=== PATIENT | female | born 1975 | race Hispanic/Latino ===

== ENCOUNTER 2019-01-03 21:49 | Emergency (ER) | payer SELFPAY ==
[~2019-01-03] VITALS: Ht 160 cm; Wt 117.5 kg
[2019-01-03] MEDS ORDERED: ACETAMINOPHEN 325 MG TAB PO ONE (22:15)
[2019-01-03 22:38] LABS: INFLUENZAE A&B ANTIGEN (RAPID) NEGATIVE (NEGATIVE); STREPTOCOCCUS GRP A ANTIGEN NEGATIVE (NEGATIVE)
--- NOTE | 2019-01-03 22:58 | Diagnostic Imaging Report ---
EXAMINATION: CHEST 2 VIEWS INDICATION: Weakness ^FEVER, COUGH ^[id number] ^2230 ^Y COMPARISON: None FINDINGS: PA and lateral views TUBES and LINES: None. LUNGS: Lungs are well inflated. There is no evidence of pneumonia or pulmonary edema. PLEURA: No pleural effusion or pneumothorax. HEART AND MEDIASTINUM: The cardiomediastinal silhouette is unremarkable.. BONES AND SOFT TISSUES: No focal osseous lesions. Soft tissues are unremarkable. UPPER ABDOMEN: Cholecystectomy clips are present. No free air under the diaphragm. IMPRESSION: No acute thoracic abnormality. Signed by: Dr. Antony Ortiz MD on 01/03/2019 10:54 PM
[2019-01-03 23:48] LABS: CLARITY,URINE CLEAR (CLEAR); COLOR,URINE YELLOW (YELLOW); LEUKOCYTE ESTERASE ,URINE NEGATIVE (NEGATIVE)
[2019-01-03 23:49] LABS: BILIRUBIN,URINE NEGATIVE (NEGATIVE); KETONES,URINE NEGATIVE (NEGATIVE); NITRITE,URINE NEGATIVE (NEGATIVE); PROTEIN,URINE DIPSTICK 2+ (NEGATIVE); URINE UROBILINOGEN 1 mg/dL (0.2 - 1)
[2019-01-03 23:53] LABS: BACTERIA,URINE FEW /HPF; EPITHELIAL CELLS,URINE FEW /LPF; RBC,URINE 21-50 /HPF (0-5); WBC,URINE (MAN) 21-50 /HPF (0-5)
[2019-01-04] MEDS ORDERED: CEFTRIAXONE SOD 1 GM VIAL IM ONE (00:45)
[2019-01-04 01:21] VITALS: BP 133/83
[2019-01-04] MEDS ORDERED: LIDOCAINE HCL 1% LOCAL INJ 20 ML VIAL ONE (01:29)
== END 2019-01-04 01:41 | disposition home or self-care (01) ==
LOC: ER 21:49
DX: R50.9 Fever, unspecified (principal); R05 Cough; R21 Rash and other nonspecific skin eruption; J20.9 Acute bronchitis, unspecified; N30.91 Cystitis, unspecified with hematuria
CPT/HCPCS: 71046; 81001; 83518; 87070; 87400; 99284; J0696; J2001